=== PATIENT | male | born 1955 | race Hispanic/Latino ===

== ENCOUNTER 2025-05-15 07:18 | Day surgery (SDC) | payer MEDICARE ==
[2025-05-08 13:20] LABS: BASOPHILS % 0.4 % (0.0-1.0); EOSINOPHILS % 1.6 % (0.0-6.0); LYMPHOCYTES % 23.3 % (18.0-39.1); MONOCYTES % 9.2 % (4.4-11.3); NEUTROPHILS % 65.4 % (38.7-80.0); RED CELL DISTRIBUTION WIDTH 12.9 % (11.7-14.4)
[2025-05-08 13:54] LABS: EST GLOMERULAR FILTRATION RATE 100.0 ML/MIN (>=60); INR 1.15
[2025-05-15] VITALS (13 sets, daily range): BP systolic 112–133; BP diastolic 66–89; PULSE 55–62; RESP 12–19; TEMP 97.5; O2SAT 96–98
[~2025-05-15] VITALS: Ht 167.6 cm; Wt 71.8 kg
[~2025-05-15 07:18] MED LIST: LIPITOR20 MG PO
[2025-05-15] MEDS ORDERED: HEPARIN SOD/SOD CHLORIDE 2,000 ML ONE (09:52)
[2025-05-15] MEDS ORDERED: LIDOCAINE HCL 2% LOCAL 20 ML VIAL ONE (09:52)
[2025-05-15] MEDS ORDERED: IOPAMIDOL 370 MG/ML 100 ML INFUS..BTL INJ ONE (09:53)
[2025-05-15] MEDS ORDERED: SODIUM CHLORIDE 0.9% 1000ML 1,000 ML ONE (09:53)
[2025-05-15] MEDS ORDERED: FENTANYL CITRATE/PF 100MCG/2 ML INJ ONE (10:09)
[2025-05-15] MEDS ORDERED: MIDAZOLAM HCL 2 MG/2 ML VIAL ONE (10:09)
== END 2025-05-15 13:30 | disposition home or self-care (01) ==
LOC: CATH LAB 07:18
PROVIDERS: ATTEND Internal Medicine Cardiovascular Disease
DX: I25.118 Atherosclerotic heart disease of native coronary artery with other forms of angina pectoris (principal); I25.2 Old myocardial infarction; I10 Essential (primary) hypertension; E78.5 Hyperlipidemia, unspecified; Z95.5 Presence of coronary angioplasty implant and graft; Z01.812 Encounter for preprocedural laboratory examination; Z79.82 Long term (current) use of aspirin; Z79.899 Other long term (current) drug therapy
CPT/HCPCS: 36415; 76937; 80053; 85025; 85610; 93458; C1887; J2003; J2250; J3010; J7030; Q9967; 99152